=== PATIENT | male | born 1955 | race Caucasian/White ===

== ENCOUNTER 2020-07-07 09:54 | Emergency (ER) | payer MEDICAID, SELFPAY ==
[2020-07-07 10:00] VITALS: BP 188/90; PULSE 75; RESP 18; TEMP 36.4; O2SAT 99
[2020-07-07 10:06] VITALS: BP 188/90; PULSE 77; RESP 18; O2SAT 99
--- NOTE | 2020-07-07 10:07 | XRR_ITS ---
PROCEDURE INFORMATION: Exam: XR Abdomen, 1 View Exam date and time: 07/07/2020 10:08 AM Age: 64 years old Clinical indication: Abdominal pain; Additional info: Abd pain TECHNIQUE: Imaging protocol: XR of the abdomen. Views: Frontal supine view of the abdomen. 1 View. COMPARISON: CT Abdomen/Pelvis [facility] [id number] 07/18/2013 2:17 PM FINDINGS: Gastrointestinal tract: Nonobstructive bowel gas pattern. Intraperitoneal space: No pneumoperitoneum. Bones/joints: There is mild levocurvature of the lumbar spine and multilevel degenerative changes. XR/XR KUB portable [id number] IMPRESSION: Nonobstructive bowel gas pattern.
--- NOTE | 2020-07-07 10:14 | ED_ITS ---
HPI - Abdominal Pain General: Chief Complaint: Abdominal Pain Stated Complaint: ABD pain Time Seen by Provider: 07/07/20 10:03 History of Present Illness: HPI narrative: 64-year-old male presents emergency room with complaint of abdominal fullness and discomfort. States he has not a bowel movement for several days. MD elicited complaint: abdominal pain Pertinent past history: constipation Onset (ago): day(s) Pain Consistency: intermittent Location: Diffuse Severity: mild Quality: cramping Radiation: none Migration to: no migration Exacerbating factors: nothing Relieving factors: nothing Associated Symptoms: Reports constipation and GI cramping; Denies anorexia, belching, bloating, change in bowel habits, change in stool character, chills, coffee ground emesis, diarrhea, dyspepsia, dysuria, excessive flatus, fever(s), heartburn, hematochezia, hematuria, hematemesis, fecal incontinence, loose stools, melena, nausea, poor appetite, syncope and vomiting Review of Systems Const: Denies: fever(s) or chills ENMT: Denies: throat pain, ear or mastoid pain, nasal discharge or nasal congestion Card: Denies: syncope Resp: Denies: dyspnea, productive cough or non-productive cough GI: Reports: constipation and GI cramping; Denies: nausea, vomiting, hematemesis, coffee ground emesis, heartburn, diarrhea, bloating, belching, excessive flatus, fecal incontinence, change in bowel habits, change in stool character, hematochezia or melena : Denies: dysuria or hematuria Skin/Breast: Denies: rash or pruritus Physical Exam Const: COMMON NORMALS: no acute distress GENERAL APPEARANCE: cooperative and comfortable ORIENTATION/CONSCIOUSNESS: Yes awake, Yes oriented to person, Yes oriented to place and Yes oriented to time HENMT: COMMON NORMALS: normocephalic, atraumatic, hearing grossly normal bilaterally, external ears normal, EAC's normal, TM's normal bilaterally, Normal nasal mucous membranes and turbinates present, moist oral mucous membranes and oropharynx normal HEAD & SCALP: normocephalic and atraumatic NOSE: Normal nasal mucous membranes and turbinates present EXTERNAL EAR: Yes external ears normal EXTERNAL AUDITORY CANAL: EAC's normal TYMPANIC MEMBRANE: TM's normal bilaterally Neck/C-Spine: COMMON NORMALS: no JVD Resp: COMMON NORMALS: normal respiratory effort, No retractions, No use of accessory muscles and clear to auscultation bilaterally AUSCULTATION: clear to auscultation bilaterally Cardio: COMMON NORMALS: no JVD, regular rate, regular rhythm and No murmurs present (Cardio) RATE: regular rate RHYTHM: regular rhythm GI: COMMON NORMALS: Soft to palpation and No hepatosplenomegaly present AUSCULTATION: Yes normoactive bowel sounds PALPATION: Yes Soft to palpation, No Tenderness to palpation present (GI), No Guarding due to palpation present (GI) and Yes No hepatosplenomegaly present Extremity: COMMON NORMALS: normal to inspection, capillary refill normal, no clubbing, cyanosis or edema, no calf tenderness and no pedal edema Neuro: SENSORIUM/ORIENTATION: Yes oriented to person, Yes oriented to place and Yes oriented to time Skin: COMMON NORMALS: no rashes or lesions noted GENERAL SKIN EXAM: no rashes or lesions noted Course Vital Signs: Vital signs: Vital Signs Temperature 97.5 F L 07/07/20 10:00 Pulse Rate 75 07/07/20 10:00 Respiratory Rate 18 07/07/20 10:00 Blood Pressure 188/90 07/07/20 10:00 Pulse Oximetry 99 07/07/20 10:00 MDM - Abdominal Pain MDM Narrative: Medical decision making narrative: KUB shows minor amount of stool discharge home with magnesium citrate as needed. Also advised him to follow-up with his blood pressure with his primary care doctor. Discharge Plan Discharge Patient Disposition: Home Clinical Impression: Constipation, Elevated blood pressure reading Condition: Stable Prescriptions: New magnesium citrate Solution 150 ml PO BID PRN (Reason: constipation) Qty: 296 RF: 0 Discharge Orders: Discharge ED (Routine); Ordered 07/07/20 Ordered By: Sunil Peters Discharge Diet: Usual diet Discharge Activity: Increase activity as tolerated Activity Restrictions/Additional Instructions: Mag citrate 150 mL every 6 8 hours until desired results achieved. Would also recommend getting otxh-ksj-zlhiovi Arcelia-Colace taking 1 pill twice a day to prevent constipation in the future Coding Level of Care Code ED Regional Planner for Chris Fwd Exam Comprehensive
[2020-07-07 10:30] VITALS: BP 188/90; PULSE 77; RESP 18; O2SAT 99
== END 2020-07-07 10:30 | disposition home or self-care (01) ==
PROVIDERS: Emergency Provider Family Medicine
DX: K59.00 Constipation, unspecified (principal); R03.0 Elevated blood-pressure reading, without diagnosis of hypertension
CPT/HCPCS: 12345; 74018; 99281; 99282

== ENCOUNTER 2020-12-18 07:59 | Outpatient (CLI) | payer MEDICAID, SELFPAY ==
--- NOTE | 2020-12-18 08:18 | CT_ITS ---
WS: [id number] LDCT LUNG CANCER SCREENING HISTORY: TOBACCO USE TECHNIQUE: Axial imaging performed from the apices to 1 cm below the costophrenic angles. Coronal and sagittal reformats are submitted with axial MIP series. All CT scans at [facility] use at least one of these dose optimization techniques: automated exposure control; mA and/or kV adjustment per patient size (includes targeted exams where dose is matched to clinical indication); or iterativ e reconstruction. DLP: 58.94 mGy.cm DIvol: 1.58 mGy COMPARISON: None available. Diagnostic quality: Satisfactory Lung Nodules: No pulmonary nodules or endobronchial lesions. Lungs: Chronic emphysema. Heart: A few scattered coronary artery calcifications. Heart size is top normal. No pericardial effus ion. Other findings: Mild atherosclerosis aorta and proximal great vessels. Pulmonary artery size is ponce l. Splenic granulomata. CT/CT lung screening [id number] IMPRESSION: LUNG-RADS: 1-Negative FOLLOW UP: 12 Month: Continue annual screening with LDCT OTHER FINDINGS (S MODIFIER): None.
== END 2020-12-18 08:00 | disposition home or self-care (01) ==
LOC: CT 08:02
PROVIDERS: PCP Family Medicine; Visit Provider Family Medicine
DX: Z12.2 Encounter for screening for malignant neoplasm of respiratory organs (principal); Z72.0 Tobacco use; I70.0 Atherosclerosis of aorta
CPT/HCPCS: 71271

== ENCOUNTER 2021-01-16 09:22 | Outpatient (CLI) | payer MEDICAID, SELFPAY ==
[2021-01-16] MEDS: iohexol 300 mg/mL 50 mL Btl PO (09:45)
--- NOTE | 2021-01-16 11:00 | CT_ITS ---
WS: [id number] CT ABDOMEN PELVIS TECHNIQUE: Contrast-enhanced CT of the abdomen and pelvis with coronal and sagittal reformatted image s. CLINICAL INFORMATION: K43.9 - Ventral hernia without obstruction or gangrene COMPARISON: CT 2 17,014 DLP: 803.[address] scans at [facility] use at least one of these dose optimization techniques: automat ed exposure control; mA and/or kV adjustment per patient size (includes targeted exams where dose is matched to clinical indication); or iterative reconstruction. FINDINGS: Fat-containing supraumbilical/epigastric hernia. No herniated bowel. Hernia mouth opening measures 3. 3 mm. Herniated fat has progressed slightly compared to 2014. No fluid collections. Diffuse fatty infiltration liver. Gallbladder is contracted. Normal portal vein and splenic vein. Spl enic granulomas. Small esophageal hiatal hernia. Lung bases are well aerated. Adrenal glands are norm al. Normal renal parenchymal enhancement. No hydronephrosis. Normal pancreatic parenchymal enhancemen t. Moderate aortic atheromatous disease. Sigmoid diverticulosis. No evidence of acute diverticulitis. No evidence of high-grade small or large bowel obstruction. Tiny fat-containing umbilical hernia. Prostate calcification. Mild prostate enlar gement measuring 3.8 x 2.3 CM. Mild bladder wall thickening can be seen with bladder outlet obstructi on. Moderate spondylitic changes lumbar spine. Unilateral left L5-S1 pars defect. CT/CT abdomen pelvis w con* [id number] IMPRESSION: 1. Supraumbilical/epigastric fat-containing hernia. No herniated bowel. Hernia mouth opening measuring 3.3 mm. 2. Tiny fat-containing umbilical hernia. 3. Normal caliber abdominal aorta. Moderate aortic calcification. 4. Slightly prominent prostate with bladder wall thickening suggestive of mild bladder outlet obstruction. Recommend correlation PSA. 5. Sigmoid diverticulosis. 6. Unilateral left L5-S1 pars defect.
[2021-01-16] MEDS: iohexol 300 mg/mL 100 mL Btl IV (11:14)
== END 2021-01-16 09:23 | disposition home or self-care (01) ==
PROVIDERS: PCP Family Medicine; Visit Provider Surgery
DX: K43.9 Ventral hernia without obstruction or gangrene (principal); K42.9 Umbilical hernia without obstruction or gangrene; K57.30 Diverticulosis of large intestine without perforation or abscess without bleeding
CPT/HCPCS: 74177; Q9967

== ENCOUNTER → 2022-01-14 16:00 | Outpatient (BNVA) | payer MEDICAID, OTHER, MEDICARE, SELFPAY | PROVIDERS: PCP Family Medicine; Visit Provider Internal Medicine | DX: R41.89 Other symptoms and signs involving cognitive functions and awareness (principal); D64.9 Anemia, unspecified; Z87.891 Personal history of nicotine dependence | CPT/HCPCS: 80053; 82607; 82746; 83550; 84443; 85025 ==

== ENCOUNTER 2024-05-01 10:04 | Observation (INO) | payer MEDICARE, MEDICAID, SELFPAY ==
[2024-05-01] VITALS (12 sets, daily range): BP systolic 143–164; BP diastolic 75–93; PULSE 75–90; RESP 17–18; TEMP 36.4–36.6; O2SAT 98–100; BMI 20.2
--- NOTE | 2024-05-01 10:21 | XRR_ITS ---
PROCEDURE INFORMATION: Exam: XR Chest Exam date and time: 05/01/2024 10:41 AM Age: 68 years old Clinical indication: Other: Weakness, dementia; Additional info: Weakness, dementia TECHNIQUE: Imaging protocol: Radiologic exam of the chest. Views: 1 view. COMPARISON: CT lung screening [id number] 12/18/2020 8:27 AM FINDINGS: Lungs: Unremarkable. No consolidation. Pleural spaces: Unremarkable. No pleural effusion. No pneumothorax. Heart/Mediastinum: Unremarkable. No cardiomegaly. Mild calcification of the aortic arch. Tortuosity of the descending thoracic aorta. Bones/joints: Unremarkable. XR/XR chest 1V portable [id number] IMPRESSION: No acute cardiopulmonary disease.
--- NOTE | 2024-05-01 10:21 | CTR_ITS ---
PROCEDURE INFORMATION: Exam: CT Head Without Contrast Exam date and time: 05/01/2024 11:41 AM Age: 68 years old Clinical indication: Altered mental status/memory loss; Patient HX: Scanned twice PT moved; Additional info: Dementia with worsening functional status, unclear etiology TECHNIQUE: Imaging protocol: Computed tomography of the head without contrast. Radiation optimization: All CT scans at this facility use at least one of these dose optimization techniques: automated exposure control; mA and/or kV adjustment per patient size (includes targeted exams where dose is matched to clinical indication); or iterative reconstruction. COMPARISON: No relevant prior studies available. RADIATION DOSE METRICS: Total DLP (mGy-cm): 2030.19 FINDINGS: Brain: Moderate to severe periventricular and subcortical white matter hypoattenuation. Subcentimeter chronic lacunar infarcts in the bilateral basal ganglia. Diffuse age-appropriate cortical atrophy. Cerebral ventricles: No ventriculomegaly. Paranasal sinuses: Visualized sinuses are unremarkable. No fluid levels. Mastoid air cells: Visualized mastoid air cells are well aerated. Bones: Unremarkable. No acute fracture. Soft tissues: Unremarkable. CT/CT head wo con* [id number] IMPRESSION: 1. No acute intracranial abnormality. 2. Moderate chronic ischemic small-vessel disease.
[2024-05-01 10:44] LABS: Basophils % 0.5 %; Eosinophils # 0.1 10^3/uL (0.0-0.8); Eosinophils % 0.8 %; Hematocrit 49.9 % (37-53); Lymphocytes # 2.4 10^3/uL (0.8-4.8); Lymphocytes % 40.1 %; Mean Corpuscular HGB Conc 31.1 g/dL (30-55); Mean Corpuscular Hemoglobin 26.5 pg (27-33); Mean Corpuscular Volume 85.3 fl (82-101); Mean Platelet Volume 9.1 fL (7.4-10.4); Monocytes # 0.7 10^3/uL (0.2-0.9); Monocytes % 10.9 %; Neutrophils # 2.87 10^3/uL (1.8-7.7); Neutrophils % 47.4 %; Nucleated Red Blood Cells % 0 %; Platelet Count 345 10^3/cmm (157-399); Red Blood Count 5.85 10^6/uL (3.85-5.65); Red Cell Distribution Width 12.7 % (12.1-15.1); White Blood Count 6.06 10^3/uL (3.29-11.43)
[2024-05-01 11:02] LABS: Troponin(5th) Baseline 8 ng/L (0-15)
--- NOTE | 2024-05-01 11:03 | ED_ITS ---
HPI - Weakness 2 General: Chief complaint: Weakness Stated complaint: WEAKNESS Time Seen by Provider: 05/01/24 10:13 History of Present Illness: 68-year-old male into the emergency depa rtment by EMS. Son, who is present in the room during my history and exam, called the ambulance around 9:30 AM. He said his father was sort of mumbling and just staring. He seemed to be sort of shaky and the son's first thought was he was having a stroke or something. Shortly after his arrival, the also arrived. The patient is extraordinarily unkempt; there are flies buzzing around him, stool plastered to his skin throughout the body, unshaven, long dirty hair, etc. says that he just wakes up in the morning and goes to a chair and sits there all day long. At baseline he can walk on his own but is not oriented. He lives with his . Son says that he is not violent and does not seem to have any significant behavioral disturbance. Last time he went to the doctor was 2 years ago. He takes no medications. Unclear last known at baseline. thinks last night. She thinks he got up around 7 AM. She did not notice much of a change but the son seem to around 9:00 or 930 when he arrived. Review of Systems 2 Narrative: Unable to obtain review of systems due to dementia. did not seem to notice anything unusual. Son reports symptoms in HPI. [facility] ED 2 PFSH: Family History Other CAD (coronary artery disease) Cancer Chronic kidney disease (CKD) Dementia Diabetes Stroke Denies family history of Psychiatric illness Lung disease Social History Smoking and tobacco/nicotine status: former use of tobacco/nicotine Alcohol intake: never Substance/Drug Use: never Lives independently: Yes Household members: children Physical Exam 2 Narrative: EXAM NARRATIVE: Unkempt, stool was plastered on his skin of the legs, perineum, stomach, chest, hands, upper extremities. He does not appear to have had a haircut in a long time. Flies buzzing around him. Unshaven. Poor dental hygiene. Underweight. Alert but is not speaking much. Occasionally mumbles. Does not follow commands. If you hold his arm up and ask him to hold it, he seems to do so. No definite focal abnormalities when I do this with all of his extremities. He has stage I and II pressure sores on the sacrum and coccyx. Nails are long and dirty. Abdomen soft and nontender. No respiratory distress. Pupils are equal round and reactive. Sensory exam is difficult but he seems to feel everything we are doing. Const: COMMON NORMALS: alert HENMT: COMMON NORMALS: normocephalic, atraumatic and external ears normal H EAD & SCALP: normocephalic and atraumatic EXTERNAL EAR: Yes external ears normal MOUTH: no muffled voice Eye: COMMON NORMALS: conjunctivae normal and no scleral icterus C ONJUNCTIVA: Yes conjunctivae normal Neck/C-Spine: GENERAL: Yes normal visual inspection and Yes trachea midline Resp: COMMON NORMALS: normal respiratory effort, No use of accessory muscles and clear to auscultation bilaterally AUSCULTATION: clear to auscultation bilaterally Cardio: COMMON NORMALS: regular rate and regular rhythm RATE: regular rate RHYTHM: regular rhythm GI: COMMON NORMALS: Soft to palpation and non-tender PALPATION: Yes Soft to palpation and No Guarding due to palpation present (GI) Extremity: COMMON NORMALS: normal to inspection Neuro: COMMON NORMALS: moves all extremities, no focal motor deficits and no sensory deficits noted SENSORIUM/ORIENTATION: Yes alert Skin: COMMON NORMALS: turgor normal and no jaundice GENERAL SKIN EXAM: t urgor normal Course 2 ED course: Repeat EKG at 11:15 AM shows sinus rhythm, rate 88, no concerning ischemic changes or ectopy. Repeat EKG at 12:23 PM continues to show a sinus rhythm, normal axis, QRS 91 ms, no concerning ST segment elevations or depressions, no ectopy. Laboratory workup notable for suspected UTI and a cathed urine specimen. Rocephin has been ordered. Remainder of laboratory workup unremarkable. CT scan of the head, chest x-ray, pelvis x-ray no acute findings. Chronic small vessel disease noted on CT of the head. It is noted that small strokes would not show up on a CT scan of the head in the acute phase. Discussed with family again. Son says in retrospect after having more time to think about it, he was afraid his father was going to this morning. He says he was monitoring some sounds, breathing irregularly, his eyes were starting to roll back into his head. He was not sure if he was just falling asleep before he was about to . This scared him and that why he called EMS. We had a family meeting with the , son, daughters. At this point they are not sure if he is DNR or not. They are discussing among some cells. They would like him admitted for 24 hours for observation to make sure nothing like this happens again. Discussed with Dr. Calderon who advised for observation admission and some IV fluids. Vital Signs: Vital signs: Vital Signs Temperature 97.8 F 05/01/24 10:05 Pulse Rate 80 05/01/24 13:34 Respiratory Rate 18 05/01/24 10:05 Blood Pressure 154/88 05/01/24 13:34 Pulse Oximetry 98 05/01/24 13:34 Oxygen Delivery Me thod Room Air 05/01/24 13:34 MDM - Weakness Medical Decision Making Patient presenting for an episode that the son witnessed in which she was staring, mumbling, and sort of tremulous. It resolved by the time he arrived. Very large differential diagnosis from neurologic, metabolic, endocrine, electrolyte, blood pressure variability, cardiac, so on and so forth. Very nonspecific presentation. It is clear that the patient is experiencing deficits in self-care. evidently not able to provide for his basic hygiene needs. Lab Data 05/01/24 10:35 05/01/24 10:35 Radiology Impressions Chest X-Ray 05/01/24 10:21 IMPRESSION: No acute cardiopulmonary disease. Head CT 05/01/24 10:21 IMPRESSION: 1. No acute intracranial abnormality. 2. Moderate chronic ischemic small-vessel disease. Pelvis X-Ray 05/01/24 11:06 IMPRESSION: No acute fracture or dislocation. Laboratory Results WBC 6.06 10^3/uL (3.29-11.43) 05/01/24 10:35 RBC 5.85 10^6/uL (3.85-5.65) H 05/01/24 10:35 Hgb 15.50 g/dL (11.27-16.99) 05/01/24 10:35 Hct 49.9 % (37-53) 05/01/24 10:35 MCV 85.3 fl (82-101) 05/01/24 10:35 MCH 26.5 pg (27-33) L 05/01/24 10:35 MCHC 31.1 g/dL (30-55) 05/01/24 10:35 RDW 12.7 % (12.1-15.1) 05/01/24 10:35 Plt Count 345 10^3/cmm (157-399) 05/01/24 10:35 MPV 9.1 fL (7.4-10.4) 05/01/24 10:35 Neut % (Auto) 47.4 % 05/01/24 10:35 Lymph % (Auto) 40.1 % 05/01/24 10:35 [place] % (Auto) 10.9 % 05/01/24 10:35 Eos % (Auto) 0.8 % 05/01/24 10:35 Baso % (Auto) 0.5 % 05/01/24 10:35 Neut # (Auto) 2.87 10^3/uL (1.8-7.7) 05/01/24 10:35 Lymph # (Auto) 2.4 10^3/uL (0.8-4.8) 05/01/24 10:35 [place] # (Auto) 0.7 10^3/uL (0.2-0.9) 05/01/24 10:35 Eos # (Auto) 0.1 10^3/uL (0.0-0.8) 05/01/24 10:35 Baso # (Auto) 0.0 10^3/uL (0.0-0.1) 05/01/24 10:35 Nucleated RBC % (auto) 0 % 05/01/24 10:35 Nucleated RBCs # 0.0 /100WBC 05/01/24 10:35 Sodium 139 mmol/L (136-145) 05/01/24 10:35 Potassium 4.4 mmol/L (3.5-5.1) 05/01/24 10:35 Chloride 102 mmol/L (98-107) 05/01/24 10:35 Carbon Dioxide 25 mmol/L (22-29) 05/01/24 10:35 Anion Gap 16.4 (5-19) 05/01/24 10:35 BUN 14 mg/dL (8-23) 05/01/24 10:35 Creatinine 0.8 mg/dL (0.7-1.2) 05/01/24 10:35 GFR Calculation 96.1 mL/min (90-130) 05/01/24 10:35 Glucose 98 mg/dL (65-115) 05/01/24 10:35 Calculated Osmolality 288 mOsm/kg (285-295) 05/01/24 10:35 Calcium 9.4 mg/dL (8.5-10.5) 05/01/24 10:35 Phosphorus 2.5 mg/dL (2.5-4.5) 05/01/24 10:35 Magnesium 2.0 mg/dL (1.7-2.3) 05/01/24 10:35 Total Bilirubin 0.3 mg/dL (0.15-1.2) 05/01/24 10:35 AST 17 U/L (0-40) 05/01/24 10:35 ALT 9 U/L (0-41) 05/01/24 10:35 Alkaline Phosphatase 105 U/L (40-130) 05/01/24 10:35 Troponin T Baseline 8 ng/L (0-15) 05/01/24 10:35 Troponin T 120 Minute 8.50 ng/L (0-15) 05/01/24 12:28 Delta Troponin T 0.50 ABS# (0-10) 05/01/24 12:28 C-Reactive Protein 3.0 mg/L (0.0-4.9) 05/01/24 10:35 Total Protein 7.4 g/dL (6.6-8.7) 05/01/24 10:35 Albumin 4.2 g/dL (3.5-5.2) 05/01/24 10:35 Globulin 3.2 g/dL (1.3-4.6) 05/01/24 10:35 TSH 1.46 uIU/mL (0.27-4.20) 05/01/24 10:35 Urine Color Yellow (Yellow) 05/01/24 10:50 Urine Appearance Clear (CLEAR) 05/01/24 10:50 Urine pH 5.5 (5-7) 05/01/24 10:50 Ur Specific [place] 1.026 (1.005-1.030) 05/01/24 10:50 Urine Protein Trace (Negative) A 05/01/24 10:50 Urine Glucose (UA) Negative (Normal) 05/01/24 10:50 Urine Ketones Negative (Negative) 05/01/24 10:50 Urine Blood Negative (Negative) 05/01/24 10:50 Urine Nitrate Negative (Negative) 05/01/24 10:50 Urine Bilirubin Negative (Negative) 05/01/24 10:50 Urine Urobilinogen 1.0 mg/dL (Negative) 05/01/24 10:50 Ur Leukocyte Esterase 1+ (Negative) A 05/01/24 10:50 Urine RBC 0-2 /hpf (0-2) 05/01/24 10:50 Urine WBC 11-20 /hpf (0-5) H 05/01/24 10:50 Ur Squamous Epith Cells 0-5 /hpf (0-5) 05/01/24 10:50 Amorphous Sediment Not Reportable 05/01/24 10:50 Urine Bacteria 1+ /hpf (NONE) H 05/01/24 10:50 Hyaline Casts 0.40 /lpf 05/01/24 10:50 Urine Opiates Screen Negative ng/mL (Negative) 05/01/24 10:50 Ur Barbiturates Screen Negative ng/mL (Negative) 05/01/24 10:50 Ur Phencyclidine Scrn Negative ng/mL (Negative) 05/01/24 10:50 Ur Amphetamines Screen Negative ng/mL (Negative) 05/01/24 10:50 U Benzodiazepines Scrn Negative ng/mL (Negative) 05/01/24 10:50 Urine Cocaine Screen Negative ng/mL (Negative) 05/01/24 10:50 U Marijuana (THC) Screen Negative ng/mL (Negative) 05/01/24 10:50 All radiology interpretation(s) finalized by discharge Discharge Plan Discharge Patient Disposition: Placed in Observation Clinical Impression: Urinary tract infection, Alzheimer's dementia without behavioral disturbance, Alteration consciousness, Self-care deficit for bathing and hygiene Condition: Stable Prescriptions: No Action multivitamin Tablet 1 tab PO DAILY Referrals: Roverto Grimm MD [Primary Care Provider] - Coding Level of Care Code ED Experience Planning Strategist for Chg Fwd Related Data Allergies Allergy/AdvReac Type Severity Reaction Status Date / Time No Known Allergies Allergy Verified 04/09/22 14:39
--- NOTE | 2024-05-01 11:06 | XRR_ITS ---
PROCEDURE INFORMATION: Exam: XR Pelvis Exam date and time: 05/01/2024 11:36 AM Age: 68 years old Clinical indication: Pelvic pain; Additional info: Some swelling around left hip; Dementia, unknown if fall TECHNIQUE: Imaging protocol: Radiologic exam of the pelvis. Views: 1 or 2 view. COMPARISON: CT abdomen pelvis w con* [id number] 01/16/2021 11:11 AM FINDINGS: Bones/joints: No acute fracture. No dislocation. Mild degenerative changes of the bilateral hip joints. Soft tissues: Unremarkable. Vasculature: Vascular calcifications visualized. XR/XR pelvis 1-2V* [id number] IMPRESSION: No acute fracture or dislocation.
--- NOTE | 2024-05-01 11:15 | ECG_ITS ---
[employer] Test Date: 2024-05-01 Pat Name: Oliver Perez Department: Room: Gender: Male Care Specialist: : 1955 Requested By: Rui Byrd Order Number: [id number] Radha MD: Yo Escobar M.D. Measurements Intervals [place] Rate: 88 P: 65 ND: 166 QRS: 69 QRSD: 83 T: 56 QT: 347 QTc: 421 Interpretive Statements SINUS RHYTHM POSSIBLE LEFT ATRIAL ENLARGEMENT [-0.1mV P-WAVE IN V1/V2] INDETERMINATE AXIS No previous ECG available for comparison Electronically Signed On 05-01-2024 18:59:43 VASCULAR SONOGRAPHER by Yo Escobar M.D. [email or web address]
[2024-05-01 11:18] LABS: Alanine Aminotransferase 9 U/L (0-41); Albumin Level 4.2 g/dL (3.5-5.2); Alkaline Phosphatase 105 U/L (40-130); Anion Gap 16.4 (5-19); Aspartate Amino Transferase 17 U/L (0-40); Blood Urea Nitrogen 14 mg/dL (8-23); Calcium 9.4 mg/dL (8.5-10.5); Carbon Dioxide 25 mmol/L (22-29); Chloride 102 mmol/L (98-107); Globulin 3.2 g/dL (1.3-4.6); Glomerular Filtration Rate 96.1 mL/min (90-130); Glucose 98 mg/dL (65-115); Osmolality Calculated 288 mOsm/kg (285-295); Phosphorus 2.5 mg/dL (2.5-4.5); Potassium 4.4 mmol/L (3.5-5.1); Sodium 139 mmol/L (136-145); Thyroid Stimulating Hormone 1.46 uIU/mL (0.27-4.20); Total Bilirubin 0.3 mg/dL (0.15-1.2); Total Protein 7.4 g/dL (6.6-8.7)
[2024-05-01 11:51] LABS: Bilirubin Urine Negative (Negative); Blood Urine Negative (Negative); Glucose Urine UA Negative (Normal); Ketones Urine Negative (Negative); Leukocyte Esterase Urine 1+ (Negative); Nitrate Urine Negative (Negative); Protein Urine Trace (Negative); Specific Gravity, Urine 1.026 (1.005-1.030); Urine Appearance Clear (CLEAR); Urine Color Yellow (Yellow); pH Urine 5.5 (5-7)
[2024-05-01 11:53] LABS: Add Urine Microscopic? YES; RBC Urine 0-2 /hpf (0-2); Squamous Epithelial Cell Urine 0-5 /hpf (0-5)
[2024-05-01 11:58] LABS: Amphetamines Screen Urine Negative (Negative); Barbiturates Screen Urine Negative (Negative); Benzodiazepines Screen Urine Negative (Negative); Cocaine Screen Urine Negative (Negative); Opiate Screen Urine Negative (Negative); PCP Screen Urine Negative (Negative); THC Screen Urine Negative (Negative)
[2024-05-01 12:05] LABS: Add Urine Culture? Yes; Bacteria Urine 1+ /hpf; UA Slide Review UA Slide Review Perf
--- NOTE | 2024-05-01 12:23 | ECG_ITS ---
[facility] Date: 2024-05-01 Pat Name: Oliver Perez Department: Room: Gender: Male Osteopathic Physician: : 1955 Requested By: Rui Byrd Order Number: [id number] Radha MD: Yo Escobar M.D. Measurements Intervals [place] Rate: 78 P: 63 FL: 152 QRS: 73 QRSD: 91 T: 63 QT: 375 QTc: 427 Interpretive Statements SINUS RHYTHM Compared to ECG 05/01/2024 11:15:27 Indeterminate axis no longer present Electronically Signed On 05-01-2024 18:59:17 FARM SUPERVISOR by Yo Escobar M.D. [id number]
[2024-05-01] MEDS: cefTRIAXone 1,000 mg SDV 1000 MG IVP (14:25)
[2024-05-01] MEDS: sodium chloride 0.9% 1,000 ML 100 ML IV (14:26)
--- NOTE | 2024-05-01 16:22 | P.HP_ITS ---
Providers/Chief Complaint 2 Admitting Physician: Dangelo Guajardo MD Primary Care Provider: Roverto Grimm MD Chief Complaint: WEAKNESS History of Present Illness Oliver Perez is a 68 year old male with past medical history of advanced dementia has not seen a physician over 2 years, not on any home medications. As per the family members who is at bedside on a good day patient is oriented to self, feed himself and take care of his needs. After the family members today morning when they woke up patient was completely incoherent, was not waking up and was only mumbling. On examination patient is awake and alert, seems to be back to his baseline. He is oriented to self. Son is at bedside. As per the nursing in the ER on presentation to the ER he was unclear, plastered in stool on his body with toe to long nails and Adult Protective Services were called. As per the son who is at bedside patient himself has not had any complaints recently. Review of Systems 2 General: Reports: ROS unobtainable due to medical condition Medications/Allergies Home Medications Medication Instructions Recorded Confirmed Last Taken Type No Known Home Medications 05/01/24 05/01/24 Unknown History Allergies Allergy/AdvReac Type Severity Reaction Status Date / Time No Known Allergies Allergy Verified 04/09/22 14:39 PFSH Acute 2 PFSH: Medical History (Updated 05/01/24 @ 16:29 by Dangelo Guajardo MD) Alzheimer's dementia without behavioral disturbance Surgical History (Updated 05/01/24 @ 16:25 by Dangelo Guajardo MD) History of appendectomy 20+ years Family History Other CAD (coronary artery disease) Cancer Chronic kidney disease (CKD) Dementia Diabetes Stroke Denies family history of Psychiatric illness Lung disease Social History Smoking and tobacco/nicotine status: former use of tobacco/nicotine Alcohol intake: never Substance/Drug Use: never Lives independently: Yes Household members: children Vitals/I&O/Wt Last Vital Signs Temp 97.8 F 05/01/24 10:05 Pulse 88 05/01/24 15:19 Resp 18 05/01/24 10:05 BP 150/84 05/01/24 15:19 Pulse Ox 98 05/01/24 15:19 O2 Del Method Room Air 05/01/24 15:19 Physical Exam 2 Narrative: General: No acute distress, AO x 1 with alert to being self, unkept HEENT: PERRLA, pupils bilaterally equal and reactive Chest: Normal vesicular breath sounds, no added sounds, equal good air entry bilaterally CVS: S1-S2 regular, no murmurs, no tachycardia, no gallops, no rubs Abdomen: Soft, nontender, no organomegaly, bowel sounds present Neuro: No focal deficits, no facial deformity, AO x3, power 5/5 in all limbs Data 05/01/24 10:35 05/01/24 10:35 A&P Assessment and plan (1) Alteration consciousness: Unknown cause. Patient does not have any record of normality, stable renal functions and liver functions. No leukocytosis. No concerns for infectious concern for now. Remains on room air. UA showing 1+ leuk esterase with 11-20 WBCs. Hold off on starting antibiotics for now. He was given IV ceftriaxone in the ER. Urine drug screen negative. Check TSH, vitamin B12, folate, procalcitonin. Check respiratory viral panel. Telemetry monitoring. Monitor for arrhythmias. Oxygen supplementation keeping saturation over 90%. (2) Alzheimer's dementia without behavioral disturbance: Not on any medications at home. Frequent reorientation. Sitter at bedside. Family wants to stay at bedside which should be okay. Donepezil 10 mg nightly, Celexa 10 mg daily. (3) Self-care deficit for bathing and hygiene: (4) Goals of care, counseling/discussion: Plan As per the nursing staff in the ER patient was unkept and Adult Protective Services has been called. CODE STATUS: Patient's is DPOA. As per family members they would not want any resuscitation. DNR/DNI Regular diet Famotidine for PUD prophylaxis Heparin for DVT prophylaxis. Attestations 2 Medical Necessity Statement*: Admission under observation for further evaluation and management of AMS in setting of advanced dementia Diagnoses Alteration consciousness R40.4 Alzheimer's dementia without behavioral disturbance G30.9; F02.80 Self-care deficit for bathing and hygiene Z74.1 Goals of care, counseling/discussion Z71.89
[2024-05-01 16:37] LABS: Procalcitonin 0.05 ng/mL (0-0.5)
[2024-05-01 17:09] LABS: Troponin 5 6HR 7.65 ng/L (0-15)
[2024-05-01 17:10] LABS: Troponin 5 6HR Delta -0.35 ng/L (0-12)
[2024-05-01 17:58] LABS: Iron 38 ug/dL (59-158); Percent Saturation 15.8 % (20-50); Thyroid Stimulating Hormone 2.46 uIU/mL (0.27-4.20); Total Iron Binding Capacity 239 mcg/dl; Unsaturated Iron Binding 201 ug/dL (112-347); Vitamin B12 245 pg/mL (232-1245)
--- NOTE | 2024-05-01 18:00 | PC.NURSE ---
Aubrey, son, is in the room with pt but not listed in PHI. Pt states that it is OK to give Aubrey information and ask him questions.
--- NOTE | 2024-05-01 18:00 | PC.NURSE ---
Pt orientated x0. RN completes admission assessment to the best of ability using family answers. and son, Aubrey, answers do not match one another. For example, Aubrey states that pt has not been to the doctor for years d/t being dropped for a dementia diagnosis. He states they have tried taking him to multiple doctors, but they refuse to see him. Pt states that it is because the physician moved to [place]. There are conflicting answers for financial questions, medical history, and general information. For this reason, admission assessment may not be completely accurate.
[2024-05-01] MEDS: famotidine 20 mg Tablet PO (18:17)
[2024-05-01] MEDS: heparin 5,000 unit/mL INJ 1 mL 5000 UNIT SUBCUT (18:18)
--- NOTE | 2024-05-01 19:41 | PC.NURSE ---
When pt arrives to med-surg, he is covered in feces and has a foul odor. Feces is matted under fingernails, in ears, and in trujillo/hair. [place]/hair have multiple knots/matting. Fingernails and toenails are roughly two inches long. Right great toenail is curved into second toe, creating a pressure injury. Urine dermatitis noted to bilateral buttocks. Thorough bed bath given to pt, with a focus on cleaning feces and attempting to detangle matting.
--- NOTE | 2024-05-01 19:52 | PC.NURSE ---
During the evening, Aubrey states multiple times that he did not know his dad was in this condition. He states that he is taking his family to court, and cannot believe this. Aubrey also states that he goes over to visit his mom and dad regularly and helps them with transportation and other needs.
[2024-05-01] MEDS: donepezil 5 MG Tablet 10 MG PO (20:08)
[2024-05-01 22:15] LABS: Adenovirus Not Detected (NOT DETECT); Chlamydia Pneumoniae Not Detected (NOT DETECT); Coronavirus 229E,HKU1,NL63,OC4 Not Detected (NOT DETECT); Human Metapneumovirus Not Detected (NOT DETECT); Human Rhinovirus/Enterovirus Not Detected (NOT DETECT); Influenza A Not Detected (NOT DETECT); Influenza A H1 Not Detected (NOT DETECT); Influenza A H1-2009 Not Detected (NOT DETECT); Influenza A H3 Not Detected (NOT DETECT); Influenza B Not Detected (NOT DETECT); Mycoplasma Pneumoniae Not Detected (NOT DETECT); Parainfluenza Virus Type 1 Not Detected (NOT DETECT); Parainfluenza Virus Type 2 Not Detected (NOT DETECT); Parainfluenza Virus Type 3 Not Detected (NOT DETECT); Parainfluenza Virus Type 4 Not Detected (NOT DETECT); Respiratory Syncytial Virus A Not Detected (NOT DETECT); Respiratory Syncytial Virus B Not Detected (NOT DETECT); SARS-COV-2 Not Detected (NOT DETECT)
[2024-05-02] VITALS: BP 139/73; PULSE 68; RESP 15; TEMP 36.5; O2SAT 95
[2024-05-02 03:54] LABS: Basophils % 0.6 %; Eosinophils # 0.1 10^3/uL (0.0-0.8); Eosinophils % 1.8 %; Hematocrit 46.1 % (37-53); Lymphocytes # 3.2 10^3/uL (0.8-4.8); Lymphocytes % 47.2 %; Mean Corpuscular HGB Conc 31.5 g/dL (30-55); Mean Corpuscular Volume 85.8 fl (82-101); Monocytes # 0.8 10^3/uL (0.2-0.9); Monocytes % 11.2 %; Neutrophils # 2.63 10^3/uL (1.8-7.7); Neutrophils % 38.9 %; Nucleated Red Blood Cells % 0 %; Platelet Count 338 10^3/cmm (157-399); Red Blood Count 5.37 10^6/uL (3.85-5.65); White Blood Count 6.76 10^3/uL (3.29-11.43)
[2024-05-02] MEDS: sodium chloride 0.9% 1,000 ML 100 ML IV (03:58)
[2024-05-02 04:00] VITALS: BP 145/69; PULSE 72; RESP 19; TEMP 36.3; O2SAT 96
[2024-05-02 04:09] LABS: Estmated Average Glucose 111; Hemoglobin A1C 5.5 % (4.0-6.0)
[2024-05-02 04:14] LABS: Alanine Aminotransferase 8 U/L (0-41); Albumin Level 3.6 g/dL (3.5-5.2); Alkaline Phosphatase 91 U/L (40-130); Anion Gap 13.1 (5-19); Aspartate Amino Transferase 15 U/L (0-40); Blood Urea Nitrogen 12 mg/dL (8-23); Calcium 9.3 mg/dL (8.5-10.5); Carbon Dioxide 28 mmol/L (22-29); Chloride 101 mmol/L (98-107); Creatinine Clr Calc Pharmacy 86.8415; Globulin 3.1 g/dL (1.3-4.6); Glomerular Filtration Rate 96.1 mL/min (90-130); Glucose 94 mg/dL (65-115); Magnesium 2.1 mg/dL (1.7-2.3); Osmolality Calculated 286 mOsm/kg (285-295); Phosphorus 3.3 mg/dL (2.5-4.5); Potassium 4.1 mmol/L (3.5-5.1); Sodium 138 mmol/L (136-145); Total Bilirubin 0.3 mg/dL (0.15-1.2); Total Protein 6.7 g/dL (6.6-8.7)
[2024-05-02 04:17] LABS: Chol HDL Ratio 4.95 mg/dL (1.0-5.00); Cholesterol 193 mg/dL (0-200); HDL Cholesterol 39 mg/dL (60-100); LDL Cholesterol Calculated 139 mg/dL (50-129); LDL HDL Ratio 3.56 RATIO (0.00-3.22); Triglycerides 75 mg/dL (0-150)
[2024-05-02] MEDS: heparin 5,000 unit/mL INJ 1 mL 5000 UNIT SUBCUT (04:21)
[2024-05-02 04:24] LABS: Procalcitonin 0.05 ng/mL (0-0.5)
[2024-05-02 04:28] LABS: Folate Level 7.8 ng/mL (4.5-32.2)
[2024-05-02 05:22] VITALS: PULSE 50
[2024-05-02 07:29] VITALS: BP 155/72; PULSE 65; RESP 18; TEMP 36.9; O2SAT 98
[2024-05-02] MEDS: famotidine 20 mg Tablet PO (08:48)
[2024-05-02] MEDS: citalopram 20 mg Tablet 10 MG PO (08:48)
--- NOTE | 2024-05-02 10:07 | PM.DCS ---
Discharge Providers Date of Admission: 05/01/24 13:54 Date of Discharge: May 02, 2024 Attending Provider at Admission: Dangelo Guajardo MD Attending Provider at Discharge: William Goodman Primary Care Provider: Roverto Grimm MD Diagnoses at Discharge Discharge Diagnosis (1) Alteration consciousness: Status: Acute (2) Alzheimer's dementia without behavioral disturbance: Status: Acute (3) Self-care deficit for bathing and hygiene: Status: Acute (4) Goals of care, counseling/discussion: Status: Acute Reason for Visit Reason for Visit: WEAKNESS Brief History: Olivre Perez is a 68 year old male with past medical history of advanced dementia has not seen a physician over 2 years, not on any home medications. As per the family members who is at bedside on a good day patient is oriented to self, feed himself and take care of his needs. After the family members today morning when they woke up patient was completely incoherent, was not waking up and was only mumbling. On examination patient is awake and alert, seems to be back to his baseline. He is oriented to self. Son is at bedside. As per the nursing in the ER on presentation to the ER he was unclear, plastered in stool on his body with toe to long nails and Adult Protective Services were called. As per the son who is at bedside patient himself has not had any complaints recently. Hospital Course Hospital Course He was observed in the hospital, workup including CBC, CMP, TSH, vitamin B12, UDS, respiratory viral panel were unremarkable. Urine with minimal abnormality 11-20 WBC. Urine culture pending so far negative. His mental status has improved back to baseline and possibly slightly better. Rehospitalization he had been started on donepezil, citalopram. He is currently awake, alert, denies any complaints. He is in good spirits. Surrounded by family. Episode of mental status change possibly related to dysregulated sleep-wake cycle secondary to dementia. Please reassess. Please follow-up final urine culture results. Physical Exam Narrative: Accompanied by multiple family members including his and daughter. Const: COMMON NORMALS: alert GENERAL APPEARANCE: cooperative ORIENTATION/CONSCIOUSNESS: Yes awake HENMT: COMMON NORMALS: oropharynx normal Neck/C-Spine: COMMON NORMALS: no JVD Resp: COMMON NORMALS: normal respiratory effort and clear to auscultation bilaterally AUSCULTATION: clear to auscultation bilaterally Cardio: COMMON NORMALS: no JVD, regular rhythm, S1 normal heart sound present, S2 normal heart sound present and No murmurs present (Cardio) RHYTHM: regular rhythm HEART SOUNDS: S1 normal heart sound present and S2 normal heart sound present GI: COMMON NORMALS: Normal to inspection, nondistended, normoactive bowel sounds present, Soft to palpation and non-tender PALPATION: Yes Soft to palpation Extremity: COMMON NORMALS: no joint enlargement and no pedal edema Neuro: COMMON NORMALS: moves all extremities SENSORIUM/ORIENTATION: Yes alert Skin: COMMON NORMALS: no rashes or lesions noted GENERAL SKIN EXAM: no rashes or lesions noted OTHER: Long nails. Discharge Data Studies Completed and Pending Completed Studies During Hospitalization Category Date Time Status CT head wo con* [id number] Stat Cat Scan 05/01/24 10:21 Completed XR chest 1V portable [id number] Stat Exams 05/01/24 10:21 Completed XR pelvis 1-2V* [id number] Stat Exams 05/01/24 11:06 Completed Pending at discharge Category Date Time Status Urinalysis Routine Lab 05/01/24 17:20 Uncollected Urine Culture Stat Lab 05/01/24 10:50 Results Radiology Impressions Chest X-Ray 05/01/24 10:21 IMPRESSION: No acute cardiopulmonary disease. Head CT 05/01/24 10:21 IMPRESSION: 1. No acute intracranial abnormality. 2. Moderate chronic ischemic small-vessel disease. Pelvis X-Ray 05/01/24 11:06 IMPRESSION: No acute fracture or dislocation. Laboratory Results WBC 6.76 10^3/uL (3.29-11.43) 05/02/24 02:42 RBC 5.37 10^6/uL (3.85-5.65) 05/02/24 02:42 Hgb 14.50 g/dL (11.27-16.99) 05/02/24 02:42 Hct 46.1 % (37-53) 05/02/24 02:42 MCV 85.8 fl (82-101) 05/02/24 02:42 MCH 27.0 pg (27-33) 05/02/24 02:42 MCHC 31.5 g/dL (30-55) 05/02/24 02:42 RDW 13.0 % (12.1-15.1) 05/02/24 02:42 Plt Count 338 10^3/cmm (157-399) 05/02/24 02:42 MPV 10.0 fL (7.4-10.4) 05/02/24 02:42 Neut % (Auto) 38.9 % 05/02/24 02:42 Lymph % (Auto) 47.2 % 05/02/24 02:42 [place] % (Auto) 11.2 % 05/02/24 02:42 Eos % (Auto) 1.8 % 05/02/24 02:42 Baso % (Auto) 0.6 % 05/02/24 02:42 Neut # (Auto) 2.63 10^3/uL (1.8-7.7) 05/02/24 02:42 Lymph # (Auto) 3.2 10^3/uL (0.8-4.8) 05/02/24 02:42 [place] # (Auto) 0.8 10^3/uL (0.2-0.9) 05/02/24 02:42 Eos # (Auto) 0.1 10^3/uL (0.0-0.8) 05/02/24 02:42 Baso # (Auto) 0.0 10^3/uL (0.0-0.1) 05/02/24 02:42 Nucleated RBC % (auto) 0 % 05/02/24 02:42 Nucleated RBCs # 0.0 /100WBC 05/02/24 02:42 Sodium 138 mmol/L (136-145) 05/02/24 02:42 Potassium 4.1 mmol/L (3.5-5.1) 05/02/24 02:42 Chloride 101 mmol/L (98-107) 05/02/24 02:42 Carbon Dioxide 28 mmol/L (22-29) 05/02/24 02:42 Anion Gap 13.1 (5-19) 05/02/24 02:42 BUN 12 mg/dL (8-23) 05/02/24 02:42 Creatinine 0.8 mg/dL (0.7-1.2) 05/02/24 02:42 GFR Calculation 96.1 mL/min (90-130) 05/02/24 02:42 Glucose 94 mg/dL (65-115) 05/02/24 02:42 Estimat Average Glucose 111 05/02/24 02:42 Hemoglobin A1c 5.5 % (4.0-6.0) 05/02/24 02:42 Calculated Osmolality 286 mOsm/kg (285-295) 05/02/24 02:42 Calcium 9.3 mg/dL (8.5-10.5) 05/02/24 02:42 Phosphorus 3.3 mg/dL (2.5-4.5) 05/02/24 02:42 Magnesium 2.1 mg/dL (1.7-2.3) 05/02/24 02:42 Iron 38 ug/dL (59-158) L 05/01/24 16:44 TIBC 239 mcg/dl 05/01/24 16:44 % Saturation 15.8 % (20-50) L 05/01/24 16:44 Unsat Iron Binding 201 ug/dL (112-347) 05/01/24 16:44 Total Bilirubin 0.3 mg/dL (0.15-1.2) 05/02/24 02:42 AST 15 U/L (0-40) 05/02/24 02:42 ALT 8 U/L (0-41) 05/02/24 02:42 Alkaline Phosphatase 91 U/L (40-130) 05/02/24 02:42 Troponin T Baseline 8 ng/L (0-15) 05/01/24 10:35 Troponin T 120 Minute 8.50 ng/L (0-15) 05/01/24 12:28 Delta Troponin T 0.50 ABS# (0-10) 05/01/24 12:28 Troponin T Hi Sens 6Hr 7.65 ng/L (0-15) 05/01/24 16:44 Troponin T Hi Sens 6Hr Delta -0.35 ng/L (0-12) L 05/01/24 16:44 C-Reactive Protein 3.0 mg/L (0.0-4.9) 05/01/24 10:35 Total Protein 6.7 g/dL (6.6-8.7) 05/02/24 02:42 Albumin 3.6 g/dL (3.5-5.2) 05/02/24 02:42 Globulin 3.1 g/dL (1.3-4.6) 05/02/24 02:42 Triglycerides 75 mg/dL (0-150) 05/02/24 02:42 Cholesterol 193 mg/dL (0-200) 05/02/24 02:42 LDL Cholesterol, Calc 139 mg/dL (50-129) H 05/02/24 02:42 HDL Cholesterol 39 mg/dL (60-100) L 05/02/24 02:42 LDL/HDL Ratio 3.56 RATIO (0.00-3.22) H 05/02/24 02:42 Cholesterol/HDL Ratio 4.95 mg/dL (1.0-5.00) 05/02/24 02:42 Vitamin B12 245 pg/mL (232-1245) 05/01/24 16:44 Folate 7.8 ng/mL (4.5-32.2) 05/02/24 02:42 Procalcitonin 0.05 ng/mL (0-0.5) 05/02/24 02:42 TSH 2.46 uIU/mL (0.27-4.20) 05/01/24 16:44 Urine Color Yellow (Yellow) 05/01/24 10:50 Urine Appearance Clear (CLEAR) 05/01/24 10:50 Urine pH 5.5 (5-7) 05/01/24 10:50 Ur Specific [place] 1.026 (1.005-1.030) 05/01/24 10:50 Urine Protein Trace (Negative) A 05/01/24 10:50 Urine Glucose (UA) Negative (Normal) 05/01/24 10:50 Urine Ketones Negative (Negative) 05/01/24 10:50 Urine Blood Negative (Negative) 05/01/24 10:50 Urine Nitrate Negative (Negative) 05/01/24 10:50 Urine Bilirubin Negative (Negative) 05/01/24 10:50 Urine Urobilinogen 1.0 mg/dL (Negative) 05/01/24 10:50 Ur Leukocyte Esterase 1+ (Negative) A 05/01/24 10:50 Urine RBC 0-2 /hpf (0-2) 05/01/24 10:50 Urine WBC 11-20 /hpf (0-5) H 05/01/24 10:50 Ur Squamous Epith Cells 0-5 /hpf (0-5) 05/01/24 10:50 Amorphous Sediment Not Reportable 05/01/24 10:50 Urine Bacteria 1+ /hpf (NONE) H 05/01/24 10:50 Hyaline Casts 0.40 /lpf 05/01/24 10:50 Urine Opiates Screen Negative ng/mL (Negative) 05/01/24 10:50 Ur Barbiturates Screen Negative ng/mL (Negative) 05/01/24 10:50 Ur Phencyclidine Scrn Negative ng/mL (Negative) 05/01/24 10:50 Ur Amphetamines Screen Negative ng/mL (Negative) 05/01/24 10:50 U Benzodiazepines Scrn Negative ng/mL (Negative) 05/01/24 10:50 Urine Cocaine Screen Negative ng/mL (Negative) 05/01/24 10:50 U Marijuana (THC) Screen Negative ng/mL (Negative) 05/01/24 10:50 Adenovirus (PCR) Not detected (NOT DETECT) 05/01/24 20:22 C. pneumoniae DNA (PCR) Not detected (NOT DETECT) 05/01/24 20:22 Coronavirus 229E (PCR) Not detected (NOT DETECT) 05/01/24 20:22 Human Metapneumovir PCR Not detected (NOT DETECT) 05/01/24 20:22 Influenza A (H1) PCR Not detected (NOT DETECT) 05/01/24 20:22 Influ A (H1/09) PCR Not detected (NOT DETECT) 05/01/24 20:22 Influenza A (H3) PCR Not detected (NOT DETECT) 05/01/24 20:22 Influenza Type A (PCR) Not detected (NOT DETECT) 05/01/24 20:22 Influenza Type B (PCR) Not detected (NOT DETECT) 05/01/24 20:22 M. pneumoniae (PCR) Not detected (NOT DETECT) 05/01/24 20:22 Parainfluenza 1 (PCR) Not detected (NOT DETECT) 05/01/24 20:22 Parainfluenza 2 (PCR) Not detected (NOT DETECT) 05/01/24 20:22 Parainfluenza 3 (PCR) Not detected (NOT DETECT) 05/01/24 20:22 Parainfluenza 4 (PCR) Not detected (NOT DETECT) 05/01/24 20:22 RSV Type A (PCR) Not detected (NOT DETECT) 05/01/24 20:22 RSV Type B (PCR) Not detected (NOT DETECT) 05/01/24 20:22 Entero/Rhino (PCR) Not detected (NOT DETECT) 05/01/24 20:22 SARS-CoV-2 (PCR) Not detected (NOT DETECT) 05/01/24 20:22 Vitals Last Vital Signs Temp 98.5 F 05/02/24 07:29 Pulse 65 05/02/24 07:29 Resp 18 05/02/24 07:29 BP 155/72 05/02/24 07:29 Pulse Ox 98 05/02/24 07:29 O2 Del Method Room Air 05/02/24 07:29 Discharge Plan Discharge Patient Disposition: Home Condition: Stable Prescriptions: New citalopram 20 mg Tablet 10 mg PO DAILY Qty: 90 0RF lactulose 10 gram packet 10 g PO DAILY PRN (Reason: constipation) Qty: 15 3RF donepezil 5 mg Tablet 10 mg PO BEDTIME Qty: 90 0RF No Action No Known Home Medications Discharge Orders: Discharge Order (Routine); Ordered 05/02/24 Ordered By: William Goodman Referrals: [facility] [Provider Group] - 2 weeks ([place]) Roverto Grimm MD [Primary Care Provider] - 05/09/24 1:00 pm Discharge Diet: Regular Discharge Activity: Increase activity as tolerated Patient Instructions: Fall Prevention (GEN) Activity Restrictions/Additional Instructions: Please follow-up with your primary provider for additional reassessment after episode of altered mental status. Follow-up regarding dementia and starting of new medications with Aricept and Celexa. Please have your primary care doctor check up on the pending urine culture results, which did not show any growth so far. Discharge Attestations Time Spent in Discharge Care*: greater than 30 min Quality Metrics Clinical Quality Measures [ No reported AMI, CVA or VTE this stay] Coding Level of Care Code 60901 Total time (in minutes) for Discharge: 40 Diagnoses Alteration consciousness R40.4 Alzheimer's dementia without behavioral disturbance G30.9; F02.80 Self-care deficit for bathing and hygiene Z74.1 Goals of care, counseling/discussion Z71.89
--- NOTE | 2024-05-02 10:11 | PC.CHAP ---
Pastoral Care Encounter/Spiritual Assessment Type of Contact [] Declined rail transportation operator visit [] Patient/Family/Request visit [] Outpatient visit [] Follow-up visit [] Physician referral [] Code/Alert [x] Routine visit [] Staff referral [] Actively dying [] Patient sleeping [x] Family support [] [] Out of room [] Palliative care [] [] Receiving care in room [] Pre-surgical visit [] Trauma [] Long length of stay [] ICU visit [] Other: Relational/Emotional Strength [] Patient feels connected with others/family/visitors/staff [] Distress [] Loneliness/isolation [] Abandonment Spirituality of Patient [x] Person of Erica [] Attends Mandaen of their Erica [x] Believes in Prayer [] Reads Bible or Latter-Day materials [] There are Spiritual issues to be addressed Traveling Construction Superintendent Interventions [x] Prayer [x] Active listening [] Non-anxious presence [] Spiritual/emotional support [] Crisis/trauma care [] Spiritual counseling [] Bereavement support [] Provided bereavement packet [x Provided Bible/devotional materials [] Provided toy/stuffed animal, coloring book to patient or family member [] Provided Communion [] Anointing/[place] [] Salvation [x] Completed spiritual assessment [] Other: Impact on Illness or Injury [] Angry [] Fearful [] Anxious [] Often cries [] Exhaustion [] Unable to work [] Unable to attend anabaptist [] Unable to walk/stand [] Unable to read [] Unable to drive [] Unable to eat/drink [] Unable to sleep [] Unable to be with family [] Patient intubated [] Other: Summary Time spent with patient 10 min
[2024-05-02 12:00] VITALS: BP 147/78; PULSE 79; RESP 18; TEMP 36.7; O2SAT 95
[2024-05-02 14:59] VITALS: BP 147/78; PULSE 79; RESP 18; TEMP 36.7; O2SAT 95
== END 2024-05-02 15:00 | disposition home or self-care (01) ==
LOC: ER 15:13 → MEDSURG 16:19
PROVIDERS: Admitting Provider Student in an Organized Health Care Education/Training Program; Emergency Provider Emergency Medicine; PCP Family Medicine; Visit Provider Internal Medicine
DX: R40.4 Transient alteration of awareness (principal); G30.9 Alzheimer's disease, unspecified; F02.80 Dementia in other diseases classified elsewhere, unspecified severity, without behavioral disturbance, psychotic disturbance, mood disturbance, and anxiety; Z74.1 Need for assistance with personal care; Z71.89 Other specified counseling; Z87.891 Personal history of nicotine dependence; Z66 Do not resuscitate; T74.01XA Adult neglect or abandonment, confirmed, initial encounter; Y99.9 Unspecified external cause status
CPT/HCPCS: 36415; 51701; 70450; 71045; 72170; 80053; 80061; 80306; 81001; 82607; 82746; 83036; 83540; 83550; 83735; 84100; 84145; 84443; 84484; 85025; 86140; 87086; 87486; 87581; 87633; 93005; 94664; 96361; 96372; 96374; 99285; G0378; J0696; J1644; J7030

== ENCOUNTER 2024-06-13 12:06 | Outpatient (CLI) | payer MEDICARE, MEDICAID, SELFPAY ==
--- NOTE | 2024-06-13 12:38 | CT_ITS ---
WS: [id number] LDCT LUNG CANCER SCREENING HISTORY: HX OF TOBACCO USE TECHNIQUE: Axial imaging performed from the apices to 1 cm below the costophrenic angles. Coronal and sagittal reformats are submitted with axial MIP series. All CT scans at [facility] use at least one of these dose optimization techniques: automated exposure control; mA and/or kV adjustment per patient size (includes targeted exams where dose is matched to clinical indication); or iterativ e reconstruction. DLP: 47.92 mGy.cm DIvol: Mean CTDIvol: 0.90 (mGy) COMPARISON: 12/18/2020 Diagnostic quality: Satisfactory Lungs: Pulmonary hyperinflation. No pulmonary nodule, mass or endobronchial lesions. Heart: Normal size heart with no pericardial effusion.. Advanced coronary artery calcifications. Other findings: Moderate atherosclerotic plaque thoracic aorta. Normal size pulmonary artery. No denisse opathy. Visualized adrenal glands are negative. CT/CT lung screening [id number] IMPRESSION: LUNG-RADS: 1-Negative FOLLOW UP: 12 Month: Continue annual screening with LDCT OTHER FINDINGS (S MODIFIER): None.
== END 2024-06-13 12:07 | disposition home or self-care (01) ==
PROVIDERS: PCP Family Medicine; Visit Provider Family Medicine
DX: Z12.2 Encounter for screening for malignant neoplasm of respiratory organs (principal); Z87.891 Personal history of nicotine dependence; R91.8 Other nonspecific abnormal finding of lung field; I25.10 Atherosclerotic heart disease of native coronary artery without angina pectoris; I70.0 Atherosclerosis of aorta
CPT/HCPCS: 71271